=== PATIENT | female | born 1960 | race African-American/Black ===

== ENCOUNTER 2017-01-01 15:55 | Emergency (ER) | payer MEDICARE, MEDICAID ==
[~2017-01-01] VITALS: Ht 157.5 cm; Wt 97.0 kg
[~2017-01-01 15:55] MED LIST: CYCL5TAB PO; DIPH1TAB36 PO; ESCI10TA PO; GABA300C5 PO; HYDR50TA3 PO; METF500T PO; MOBI15TA PO; NIFE10CA PO; NORC5TAB PO; SIMV20TA PO; cpap
[2017-01-01 16:00] VITALS: BP 169/85; PULSE 91; RESP 18; TEMP 98.9; O2SAT 99
[2017-01-01 16:10] VITALS: RESP 18; O2SAT 99
[2017-01-01] MEDS ORDERED: SODIUM CHLORIDE 0.9% FLUSH 10 ML FLUSH IVF PRN (16:15)
--- NOTE | 2017-01-01 16:31 | PD ---
HPI . Somnolence Chief Complaint: General Weakness Time Seen by Provider: 16:02 Travel History International Travel<30 days: No Contact w/Intl Traveler<30days: No Traveled to known affect area: No History of Present Illness HPI This patient presents to us via EMS with chief complaint of hypersomnolence. The patient reports that she has sleep apnea. She has not had a CPAP machine for the last year. She reports continued and worsening somnolence for the last year. Her reports profound confusion associated with the somnolence. He became concerned today and called 911 and had her brought to the hospital. PFSH Past Medical History Asthma: No Blood Disorders: No Heart Rhythm Problems: Yes (HEART MURMUR) Cardiac Catheterization: No Cardiovascular Problems: No High Cholesterol: Yes (MEDICATION CONTROLLED) Chemotherapy: No Chest Pain: Yes (CHEST PAIN) Congestive Heart Failure: No COPD: No Coronary Artery Disease: Yes Diabetes: Yes (BORDERLINE DIET CONTROLLED) Patient Takes Glucophage: Yes Diminished Hearing: No Endocrine: No Genitourinary: No Hypertension: Yes Immune Disorder: No Musculoskeletal: Yes (CHRONIC L KNEE PAIN DUE TO ACCIDENT ON THE JOB IN 2007) Neurologic: No Psychiatric: No Reproductive: No Respiratory: Yes (HAD BRONCHITIS IN THE PAST) Migraines: Yes Myocardial Infarction: No Radiation Therapy: No Sleep Apnea: Yes (CPAP AT NIGHT) Thyroid Disease: No Tetanus Vaccination: > 5 Years Influenza Vaccination: Yes PNEUMOCCOCAL Vaccine (Year): 2 ?: Not Menopausal: Yes : 5 Para: 5 Tubal Ligation: Yes Past Surgical History Appendectomy: Yes Coronary Artery Bypass Graft: No Hysterectomy: Yes Pacemaker: No Other Surgery: No Social History Alcohol Use: No Tobacco Use: No Substance Use: No Allergies-Medications (Allergen,Severity, Reaction): Coded Allergies: tramadol (Unverified Adverse Reaction, Intermediate, vomiting, 01/01/17) N/V Reported Meds & Prescriptions Reported Meds & Active Scripts Active Gabapentin 300 Mg Cap 300 Mg PO TID Escitalopram (Escitalopram Oxalate) 10 Mg Tab 10 Mg PO HS Mobic (Meloxicam) 15 Mg Tab 15 Mg PO DAILY Flexeril (Cyclobenzaprine HCl) 5 Mg Tab 5 Mg PO TID Hydrochlorothiazide 50 Mg Tab 25 Mg PO DAILY Metformin (Metformin HCl) 500 Mg Tab 500 Mg PO BIDPC With meals Simvastatin 20 Mg Tab 20 Mg PO DAILY Reported [place]on (Hydrocodone-Acetaminophen) 5-325 mg Tab 1 Tab PO BID PRN Review of Systems Except as stated in HPI: all other systems reviewed are Neg General / Constitutional: Positive: Other (, somnolence) Psychiatric: Positive: Depression, Suicidal Ideations Physical Exam Narrative GENERAL: Awake and alert and in no acute distress. SKIN: Warm and dry. HEAD: Atraumatic. Normocephalic. EYES: Pupils equal and round. Extraocular movements are intact. NECK: Trachea midline. Neck is supple. CARDIOVASCULAR: Regular rate and rhythm. RESPIRATORY: No accessory muscle use. Lungs are clear with full air movement throughout. MUSCULOSKELETAL: No obvious deformities. No edema. NEUROLOGICAL: Awake and alert. No obvious cranial nerve deficits. Motor grossly within normal limits. Normal speech. PSYCHIATRIC: Patient appears very sad. She is tearful. She admits to suicidal ideation. She thinks that she is very depressed. Data Data Last Documented VS Vital Signs Date Time Temp Pulse Resp B/P (MAP) Pulse Ox O2 Delivery O2 Flow Rate FiO2 01/01/17 16:10 18 99 Room Air 01/01/17 16:06 96 01/01/17 16:00 98.9 169/85 (113) Orders Orders Complete Blood Count With Diff (01/01/17 16:04) Basic Metabolic Panel (Bmp) (01/01/17 16:04) Arterial Blood Gas (Abg) (01/01/17 16:04) Iv Access Insert/Monitor (01/01/17 16:04) Ecg Monitoring (01/01/17 16:04) Oximetry (01/01/17 16:04) Oxygen Administration (01/01/17 16:04) Chest, Single Ap (01/01/17 16:04) Sodium Chloride 0.9% Flush (Ns Flush) (01/01/17 16:15) Psych Screen (01/01/17 16:12) Drug Screen, Random Urine (01/01/17 16:12) Alcohol (Ethanol) (01/01/17 16:12) Labs Laboratory Tests Test 01/01/17 16:30 White Blood Count 6.3 TH/MM3 Red Blood Count 5.18 MIL/MM3 Hemoglobin 12.4 GM/DL Hematocrit 38.2 % Mean Corpuscular Volume 73.9 FL Mean Corpuscular Hemoglobin 23.9 PG Mean Corpuscular Hemoglobin Concent 32.3 % Red Cell Distribution Width 14.3 % Platelet Count 267 TH/MM3 Mean Platelet Volume 7.9 FL Neutrophils (%) (Auto) 47.6 % Lymphocytes (%) (Auto) 44.2 % Monocytes (%) (Auto) 5.8 % Eosinophils (%) (Auto) 1.4 % Basophils (%) (Auto) 1.0 % Neutrophils # (Auto) 3.0 TH/MM3 Lymphocytes # (Auto) 2.8 TH/MM3 Monocytes # (Auto) 0.4 TH/MM3 Eosinophils # (Auto) 0.1 TH/MM3 Basophils # (Auto) 0.1 TH/MM3 CBC Comment DIFF FINAL Differential Comment Blood Urea Nitrogen 11 MG/DL Creatinine 1.04 MG/DL Random Glucose 159 MG/DL Calcium Level 9.4 MG/DL Sodium Level 138 MEQ/L Potassium Level 3.0 MEQ/L Chloride Level 99 MEQ/L Carbon Dioxide Level 27.7 MEQ/L Anion Gap 11 MEQ/L Estimat Glomerular Filtration Rate 67 ML/MIN MDM Medical Decision Making Medical Screen Exam Complete: Yes Emergency Medical Condition: Yes Differential Diagnosis Differential diagnosis of altered mental status includes but is not limited to infection, electrolyte abnormality, neurological event, intoxication Narrative Course This patient presents with a one-year history of increasing somnolence associated with lack of CPAP machine. She reports that she feels depressed and suicidal. She will be medically cleared. She will then be evaluated by psychiatry. Chest x-ray was negative. The chest x-ray was independently viewed by me. CBC & BMP Diagram 01/01/17 16:30 Calcium Level 9.4 I will replace her potassium orally. This patient is medically clear for psychiatric evaluation. Diagnosis Primary Impression: Uncontrolled daytime somnolence Additional Impressions: Obstructive sleep apnea Depression Qualified Codes: F32.9 - Major depressive disorder, single episode, unspecified Suicidal ideation Hypokalemia Condition: Stable Felicia Díaz MD Jan 01, 2017 16:31
[2017-01-01 16:44] LABS: BASOPHIL # 0.1 TH/MM3 (0-0.2); EOSINOPHIL # 0.1 TH/MM3 (0-0.4); EOSINOPHIL % 1.4 % (0.0-4.0); HEMATOCRIT 38.2 % (35.0-46.0); HEMO FLAGS DIFF FINAL; LYMPH % 44.2 % (9.0-44.0); LYMPHOCYTE # 2.8 TH/MM3 (1.0-4.8); MEAN CELL VOLUME 73.9 FL (80.0-100.0); MEAN CORPUSCULAR HEMOGLOBIN 23.9 PG (27.0-34.0); MEAN CORPUSCULAR HGB CONC 32.3 % (32.0-36.0); MONO % 5.8 % (0.0-8.0); NEUT % 47.6 % (16.0-70.0); PLATELET COUNT 267 TH/MM3 (150-450); RED BLOOD COUNT 5.18 MIL/MM3 (4.00-5.30); RED CELL DISTRIBUTION WIDTH 14.3 % (11.6-17.2); WHITE BLOOD COUNT 6.3 TH/MM3 (4.0-11.0)
--- NOTE | 2017-01-01 16:46 | RADRPT ---
EXAM DATE/TIME: 01/01/2017 16:28 [facility] COMPARISON: No previous studies available for comparison. INDICATIONS : Short of breath. MEDICAL HISTORY : Hypertension. SURGICAL HISTORY : None. ENCOUNTER: Initial ACUITY: 2 days PAIN SCORE: 4/10 LOCATION: Bilateral upper chest FINDINGS: A single view of the chest demonstrates the lungs to be symmetrically aerated without evidence of mas s, infiltrate or effusion. The cardiomediastinal contours are unremarkable. Osseous structures are intact. CONCLUSION: No acute disease. Chani Pollard MD on January 01, 2017 at 16:44 Board Certified Radiologist. This report was verified electronically.
[2017-01-01 16:58] LABS: BICARBONATE 27.7 MEQ/L (21.0-32.0)
[2017-01-01 18:13] VITALS: BP 131/81; PULSE 89; RESP 18; O2SAT 99
[2017-01-01] MEDS: POTASSIUM CHLORIDE 20 MEQ CONTROLLED RELEASE TAB PO SCH ×2 (18:14→21:27)
--- NOTE | 2017-01-01 23:25 | PD ---
Physical Exam Narrative Patient was medically clear by ED physician. Patient was seen by psychiatric screener. Data Data Last Documented VS Vital Signs Date Time Temp Pulse Resp B/P (MAP) Pulse Ox O2 Delivery O2 Flow Rate FiO2 01/01/17 18:13 89 18 131/81 (98) 99 Room Air 01/01/17 16:00 98.9 Orders Orders Complete Blood Count With Diff (01/01/17 16:04) Basic Metabolic Panel (Bmp) (01/01/17 16:04) Iv Access Insert/Monitor (01/01/17 16:04) Ecg Monitoring (01/01/17 16:04) Oximetry (01/01/17 16:04) Oxygen Administration (01/01/17 16:04) Chest, Single Ap (01/01/17 16:04) Sodium Chloride 0.9% Flush (Ns Flush) (01/01/17 16:15) Psych Screen (01/01/17 16:12) Drug Screen, Random Urine (01/01/17 16:12) Alcohol (Ethanol) (01/01/17 16:12) Potassium Chloride (Kcl) (01/01/17 18:00) Labs Laboratory Tests Test 01/01/17 16:30 White Blood Count 6.3 TH/MM3 Red Blood Count 5.18 MIL/MM3 Hemoglobin 12.4 GM/DL Hematocrit 38.2 % Mean Corpuscular Volume 73.9 FL Mean Corpuscular Hemoglobin 23.9 PG Mean Corpuscular Hemoglobin Concent 32.3 % Red Cell Distribution Width 14.3 % Platelet Count 267 TH/MM3 Mean Platelet Volume 7.9 FL Neutrophils (%) (Auto) 47.6 % Lymphocytes (%) (Auto) 44.2 % Monocytes (%) (Auto) 5.8 % Eosinophils (%) (Auto) 1.4 % Basophils (%) (Auto) 1.0 % Neutrophils # (Auto) 3.0 TH/MM3 Lymphocytes # (Auto) 2.8 TH/MM3 Monocytes # (Auto) 0.4 TH/MM3 Eosinophils # (Auto) 0.1 TH/MM3 Basophils # (Auto) 0.1 TH/MM3 CBC Comment DIFF FINAL Differential Comment Blood Urea Nitrogen 11 MG/DL Creatinine 1.04 MG/DL Random Glucose 159 MG/DL Calcium Level 9.4 MG/DL Sodium Level 138 MEQ/L Potassium Level 3.0 MEQ/L Chloride Level 99 MEQ/L Carbon Dioxide Level 27.7 MEQ/L Anion Gap 11 MEQ/L Estimat Glomerular Filtration Rate 67 ML/MIN Ethyl Alcohol Level LESS THAN 3 MG/DL MDM Supervised Visit with SAHIL: No Narrative Course Patient was medically cleared by ED physician. Patient was psychiatrically cleared by psychiatric screener after speaking to psychiatrist. Patient will be discharged home. Patient will be follow-up with psychiatry as outpatient. Diagnosis Primary Impression: Uncontrolled daytime somnolence Additional Impressions: Suicidal ideation Obstructive sleep apnea Depression Qualified Codes: F32.9 - Major depressive disorder, single episode, unspecified Hypokalemia Patient Instructions: General Instructions Additional Instruction: Follow-up with psychiatrist as outpatient. Return as needed. Med/Other Pt SpecificInfo: No Change to Meds Disposition: 01 DISCHARGE HOME Condition: Stable Lane Zavaleta MD Jan 01, 2017 23:25
[2017-01-01] MEDS ORDERED: hydrOXYzine PAMOATE 25 MG CAP PO ONE (23:45)
[2017-01-02] MEDS ORDERED: HYDR-3580 PO (15:55)
[2017-01-02] MEDS ORDERED: NIFE10CA PO (15:55)
[2017-01-12] MEDS ORDERED: HYDR50TA3 PO (16:06)
[2017-01-12] MEDS ORDERED: ESCI20TA PO (16:06)
[2017-01-12] MEDS ORDERED: METF500T PO (16:06)
[2017-01-12] MEDS ORDERED: SIMV20TA PO (16:06)
== END 2017-01-02 00:07 | disposition home or self-care (01) ==
LOC: NEPE 15:55
DX: G47.19 Other hypersomnia (principal); G47.33 Obstructive sleep apnea (adult) (pediatric); F32.9 Major depressive disorder, single episode, unspecified; E87.6 Hypokalemia; Z79.899 Other long term (current) drug therapy
CPT/HCPCS: 71010; 80048; 80307; 85025; 99284; Q0177

== ENCOUNTER 2017-01-02 15:09 | Inpatient (IN) | payer MEDICARE, MEDICAID ==
[~2017-01-02] VITALS: Ht 160 cm; Wt 95.9 kg
[~2017-01-02 15:09] MED LIST changes: -DIPH1TAB36 PO; -NIFE10CA PO; -cpap
[2017-01-02 15:39] VITALS: BP 124/81; PULSE 94; RESP 14; TEMP 97.2; O2SAT 100
[2017-01-02] MEDS ORDERED: NIFE10CA PO (15:55)
[2017-01-02] MEDS ORDERED: HYDR-3580 PO (15:55)
--- NOTE | 2017-01-02 16:09 | PD ---
HPI Chief Complaint: Medical Clearance Time Seen by Provider: 15:58 Travel History International Travel<30 days: No Contact w/Intl Traveler<30days: No Traveled to known affect area: No History of Present Illness HPI 56-year-old female presents back to the emergency department for evaluation. She was seen here last night and had a faint screen completed. She was told that Dr. Mario would be able to make medication adjustments that she return today between 3 and 4 PM. Patient states that she has been sad and depressed. She is tearful on my exam. She reports issues with her watching her attention and her want to spend time with her grandchildren. 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 She states she has thought about suicide the past, has no plan but states she would ever act on it. The patient denies alcohol, tobacco, drug use. She has no medical complaints at this time. PFSH Past Medical History Asthma: No Blood Disorders: No Heart Rhythm Problems: Yes (HEART MURMUR) Cardiac Catheterization: No Cardiovascular Problems: Yes High Cholesterol: Yes (MEDICATION CONTROLLED) Chemotherapy: No Chest Pain: Yes (CHEST PAIN) Congestive Heart Failure: No COPD: No Coronary Artery Disease: Yes Diabetes: Yes Patient Takes Glucophage: Yes Diminished Hearing: No Endocrine: No Genitourinary: No Hypertension: Yes Immune Disorder: No Musculoskeletal: Yes (CHRONIC L KNEE PAIN DUE TO ACCIDENT ON THE JOB IN 2007) Neurologic: No Psychiatric: No Reproductive: No Respiratory: Yes (HAD BRONCHITIS IN THE PAST) Migraines: Yes Myocardial Infarction: No Radiation Therapy: No Sleep Apnea: Yes (CPAP AT NIGHT) Thyroid Disease: No PNEUMOCCOCAL Vaccine (Year): 2 ?: Not Menopausal: Yes : 5 Para: 5 Tubal Ligation: Yes Past Surgical History Appendectomy: Yes Coronary Artery Bypass Graft: No Hysterectomy: Yes Pacemaker: No Other Surgery: No Social History Alcohol Use: No Tobacco Use: No Substance Use: No Allergies-Medications (Allergen,Severity, Reaction): Coded Allergies: tramadol (Verified Adverse Reaction, Intermediate, vomiting, 01/02/17) N/V Reported Meds & Prescriptions Reported Meds & Active Scripts Active Gabapentin 300 Mg Cap 300 Mg PO TID Escitalopram (Escitalopram Oxalate) 10 Mg Tab 10 Mg PO HS Mobic (Meloxicam) 15 Mg Tab 15 Mg PO DAILY Flexeril (Cyclobenzaprine HCl) 5 Mg Tab 5 Mg PO TID Hydrochlorothiazide 50 Mg Tab 25 Mg PO DAILY Metformin (Metformin HCl) 500 Mg Tab 500 Mg PO BIDPC With meals Simvastatin 20 Mg Tab 20 Mg PO DAILY Reported Hydrocodone-Acetaminophen 7.5-325 mg Tab 1 Tab PO BID PRN Nifedipine 10 Mg Cap 10 Mg PO DAILY Review of Systems Except as stated in HPI: all other systems reviewed are Neg Physical Exam Narrative GENERAL: Well-nourished, well-developed female patient, afebrile. SKIN: Focused skin assessment warm/dry. HEAD: Normocephalic. Atraumatic. EYES: No scleral icterus. No injection or drainage. NECK: Supple, trachea midline. No JVD or lymphadenopathy. CARDIOVASCULAR: Regular rate and rhythm without murmurs, gallops, or rubs. RESPIRATORY: Breath sounds equal bilaterally. No accessory muscle use. Lungs sounds are clear to auscultation. GASTROINTESTINAL: Abdomen soft, non-tender, nondistended. MUSCULOSKELETAL: No cyanosis, or edema. PSYCHIATRIC: No delusional thought processes. No hallucinations. Patient is tearful. Data Data Last Documented VS Vital Signs Date Time Temp Pulse Resp B/P (MAP) Pulse Ox O2 Delivery O2 Flow Rate FiO2 01/02/17 15:39 97.2 94 14 124/81 (95) 100 Orders Orders Admit Order (Ed Use Only) (01/02/17 17:01) Admit To Inpatient Psych (01/02/17 ) Vital Signs (Adult) PHU.Q12H.E (01/02/17 17:02) Activity Oob Ad Karishma (01/02/17 17:02) Level Of Observation (Psych) (01/02/17 17:02) Lorazepam (Ativan) (01/02/17 17:15) Lorazepam Inj (Ativan Inj) (01/02/17 17:15) Lorazepam (Ativan) (01/02/17 17:15) Lorazepam Inj (Ativan Inj) (01/02/17 17:15) Acetaminophen (Tylenol) (01/02/17 17:15) Magnesium Hydroxide Liq (Milk Of Magnesi (01/02/17 17:15) Al-Mag Hy-Si 40-40-4 Mg/Ml Liq (Mag-Al P (01/02/17 17:15) Basic Metabolic Panel (Bmp) (01/03/17 06:00) Lipid Profile (01/03/17 06:00) Hemoglobin (Hgb) A1c (01/03/17 06:00) MDM Medical Decision Making Medical Screen Exam Complete: Yes Emergency Medical Condition: Yes Medical Record Reviewed: Yes Differential Diagnosis Depression versus anxiety versus medical clearance Narrative Course 56-year-old female presents to the emergency department for medication adjustment. She was told if she came back today between 3 and 4 PM, Dr. Mario would be able to make some medication changes. I spoke to Irasema Borja with the psych department. She will call Dr. Mario. Dr. Mario saw patient and wrote at admit. Diagnosis Primary Impression: Depression, major, single episode, severe Admitting Information Admitting Physician Requests: Alesha Hannon Jan 02, 2017 16:09
--- NOTE | 2017-01-02 17:07 | PD ---
History of Present Illness Chief Complaint: Medical Clearance Time Seen by Provider: 17:00 Travel History International Travel<30 Days: No Contact w/Intl Traveler<30days: No Known affected area: No Legal Status Legal Status: Voluntary History of Present Illness: 56-year-old female came in yesterday with complaints of depression and suicidal thinking. Has to come back today to have this physician changed her antidepressant therapy. Patient unable to contract for safety. She describes multiple symptoms of depression for months. These include depressed mood, anhedonia, hypersomnia, suicidal ideation, hopelessness and helplessness, decreased energy, decreased self-esteem, social withdrawal, etc. Patient's , although supportive, does not feel he can watch her or take care of her. Multiple family stressors. Patient denies history of alcoholism or drug abuse. 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 PFSH Past Medical History Asthma: No Blood Disorders: No Heart Rhythm Problems: Yes (HEART MURMUR) Cardiac Catheterization: No Cardiovascular Problems: Yes High Cholesterol: Yes (MEDICATION CONTROLLED) Chemotherapy: No Chest Pain: Yes (CHEST PAIN) Congestive Heart Failure: No COPD: No Coronary Artery Disease: Yes Diabetes: Yes Patient Takes Glucophage: Yes Diminished Hearing: No Endocrine: No Genitourinary: No Hypertension: Yes Immune Disorder: No Musculoskeletal: Yes (CHRONIC L KNEE PAIN DUE TO ACCIDENT ON THE JOB IN 2007) Neurologic: No Psychiatric: No Reproductive: No Respiratory: Yes (HAD BRONCHITIS IN THE PAST) Migraines: Yes Myocardial Infarction: No Radiation Therapy: No Sleep Apnea: Yes (CPAP AT NIGHT) Thyroid Disease: No PNEUMOCCOCAL Vaccine (Year): 2 ?: Not Menopausal: Yes : 5 Para: 5 Tubal Ligation: Yes Past Surgical History Appendectomy: Yes Coronary Artery Bypass Graft: No Hysterectomy: Yes Pacemaker: No Other Surgery: No Psychiatric History Psychiatric History Hx Psychiatric Treatment: PATIENT REPORTS ACT PROGRAM IN THE 'S. 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 PATIENT ALSO REPORTS ATTENDING COUNSELING DUE TO HER OLDEST SON MOLESTING HER YOUNGEST DAUGHTER. History of Inpatient Treatment: Yes Social History Hx Alcohol Use: No Hx Tobacco Use: No Hx Substance Use: No Hx of Substance Use Treatment: No Allergies-Medications (Allergen,Severity, Reaction): Coded Allergies: tramadol (Verified Adverse Reaction, Intermediate, vomiting, 01/02/17) N/V Reported Meds & Prescriptions Reported Meds & Active Scripts Active Gabapentin 300 Mg Cap 300 Mg PO TID Escitalopram (Escitalopram Oxalate) 10 Mg Tab 10 Mg PO HS Mobic (Meloxicam) 15 Mg Tab 15 Mg PO DAILY Flexeril (Cyclobenzaprine HCl) 5 Mg Tab 5 Mg PO TID Hydrochlorothiazide 50 Mg Tab 25 Mg PO DAILY Metformin (Metformin HCl) 500 Mg Tab 500 Mg PO BIDPC With meals Simvastatin 20 Mg Tab 20 Mg PO DAILY Reported Hydrocodone-Acetaminophen 7.5-325 mg Tab 1 Tab PO BID PRN Nifedipine 10 Mg Cap 10 Mg PO DAILY Review of Systems Except as stated in HPI: all other systems reviewed are Neg Exam Alert: Yes [place]: Person, Place, Date, Situation Mood: Depressed Affect: Blunted Speech: Clear Eye Contact: Indirect Memory Intact: Immediate, Recent, Remote Suicidal: Ideation Insight/Judgement Impaired MDM Medical Decision Making Medical Record Reviewed: Yes Assessment/Plan Medical record review by this physician. Case discussed with nurse. This physician interviewed the patient and her at bedside. Patient remains quite depressed and is unable to contract for safety. She would like to be admitted. She does not wish to try changing her medicines on an outpatient basis. Orders Orders Admit Order (Ed Use Only) (01/02/17 17:01) Admit To Inpatient Psych (01/02/17 ) Vital Signs (Adult) PHU.Q12H.E (01/02/17 17:02) Activity Oob Ad Karishma (01/02/17 17:02) Level Of Observation (Psych) (01/02/17 17:02) Lorazepam (Ativan) (01/02/17 17:15) Lorazepam Inj (Ativan Inj) (01/02/17 17:15) Lorazepam (Ativan) (01/02/17 17:15) Lorazepam Inj (Ativan Inj) (01/02/17 17:15) Acetaminophen (Tylenol) (01/02/17 17:15) Magnesium Hydroxide Liq (Milk Of Magnesi (01/02/17 17:15) Al-Mag Hy-Si 40-40-4 Mg/Ml Liq (Mag-Al P (01/02/17 17:15) Basic Metabolic Panel (Bmp) (01/03/17 06:00) Lipid Profile (01/03/17 06:00) Hemoglobin (Hgb) A1c (01/03/17 06:00) Results Vital Signs Date Time Temp Pulse Resp B/P (MAP) Pulse Ox O2 Delivery O2 Flow Rate FiO2 01/02/17 15:39 97.2 94 14 124/81 (95) 100 Diagnosis Primary Impression: Depression, major, single episode, severe Tom Mario MD Jan 02, 2017 17:07
[2017-01-02] MEDS ORDERED: ALUMINUM/MAGNESIUM/SIMETH 30 ML CUP PO PRN (17:15)
[2017-01-02] MEDS ORDERED: MAGNESIUM HYDROXIDE SUSP 30 ML CUP PO PRN (17:15)
[2017-01-02] MEDS ORDERED: LORazepam 2 MG/ML VIAL IM PRN ×2 (17:15)
[2017-01-02] MEDS ORDERED: LORazepam 0.5 MG TAB PO PRN (17:15)
[2017-01-02] MEDS ORDERED: ACETAMINOPHEN 325 MG TAB PO PRN (17:15)
[2017-01-02 19:25] LABS: AUTOMATED NEUTROPHIL # 2.9 TH/MM3 (1.8-7.7); BASOPHIL % 0.4 % (0.0-2.0); EOSINOPHIL # 0.1 TH/MM3 (0-0.4); EOSINOPHIL % 1.7 % (0.0-4.0); HEMATOCRIT 36.8 % (35.0-46.0); HEMO FLAGS DIFF FINAL; LYMPH % 43.6 % (9.0-44.0); LYMPHOCYTE # 2.6 TH/MM3 (1.0-4.8); MEAN CORPUSCULAR HEMOGLOBIN 23.6 PG (27.0-34.0); MEAN CORPUSCULAR HGB CONC 31.8 % (32.0-36.0); MONO % 6.9 % (0.0-8.0); NEUT % 47.4 % (16.0-70.0); PLATELET COUNT 260 TH/MM3 (150-450); RED BLOOD COUNT 4.97 MIL/MM3 (4.00-5.30); RED CELL DISTRIBUTION WIDTH 14.3 % (11.6-17.2)
[2017-01-02 19:39] VITALS: BP 134/91; PULSE 90; RESP 17; TEMP 98.2; O2SAT 99
[2017-01-02 19:48] LABS: ALT (GPT) 29 U/L (10-53); ANION GAP 9 MEQ/L (5-15); AST (GOT) 15 U/L (15-37); BICARBONATE 28.3 MEQ/L (21.0-32.0); BLOOD UREA NITROGEN 14 MG/DL (7-18); CHLORIDE 103 MEQ/L (98-107); GLOMERULAR FILTRATION RATE 77 ML/MIN (>89); POTASSIUM 3.4 MEQ/L (3.5-5.1); SODIUM (NA) 140 MEQ/L (136-145)
[2017-01-02 19:50] LABS: ALKALINE PHOSPHATASE 69 U/L (45-117); TOTAL BILIRUBIN ADULT 0.4 MG/DL (0.2-1.0)
[2017-01-02] MEDS: LORazepam 1 MG TAB PO PRN (23:14)
[2017-01-03 06:03] VITALS: BP 132/76; PULSE 83; RESP 18; TEMP 98; O2SAT 99
[2017-01-03 08:42] LABS: ANION GAP 6 MEQ/L (5-15); BICARBONATE 30.9 MEQ/L (21.0-32.0); BLOOD UREA NITROGEN 12 MG/DL (7-18); CHLORIDE 100 MEQ/L (98-107); GLOMERULAR FILTRATION RATE 80 ML/MIN (>89); POTASSIUM 3.8 MEQ/L (3.5-5.1); SODIUM (NA) 137 MEQ/L (136-145)
[2017-01-03 08:46] LABS: LDL CHOLESTEROL 80 MG/DL (0-99)
[2017-01-03] MEDS: LORazepam 1 MG TAB PO PRN (09:46)
--- NOTE | 2017-01-03 11:28 | HHI.FPPN ---
Subjective Remarks Mrs. Mccabe is a pleasant 56 y/o black female with a PMHx of hypertension, T2DM , depression, chronic lower back pain, and hypercholesterolemia presenting after suicidal ideations. She reports that she just needed to escape, and that there has been a lot of stress recently. He denies any previous attempts of suicide. She denies any current thoughts of suicide with plans. She has had depression, all of her life. Denies any substance or alcohol abuse. She reports that her back pain is at its baseline, and is requesting her pain medications. She was recently started on [place] 7.5 mg twice a day for back pain by Dr. Grubbs, her pain specialist. She also takes gabapentin 3 times a day and this also helps with her pain. She is asking when she can go home. (Gonzalez Marrero MD, R3) Objective Vitals Vital Signs Date Time Temp Pulse Resp B/P (MAP) Pulse Ox O2 Delivery O2 Flow Rate FiO2 01/03/17 06:03 98.0 83 18 132/76 (94) 99 01/02/17 19:39 98.2 90 17 134/91 (105) 99 01/02/17 15:39 97.2 94 14 124/81 (95) 100 (Gonzalez Marrero MD, R3) Result Diagram: 01/02/17 1832 01/03/17 0713 Objective Remarks GENERAL: Obese, female, in no acute distress. Affect is blunted. SKIN: Warm and dry. No rash. EYES: No scleral icterus. No injection or drainage. PERRLA. EOMI. HENT: Normocephalic. Atraumatic. MMM. NECK: No visible JVD or lymphadenopathy. CARDIOVASCULAR: Warm and well perfused. RESPIRATORY: Normal respiratory effort. GASTROINTESTINAL: Abdomen nondistended. MUSCULOSKELETAL: Strength grossly WNL. BACK: Without obvious deformity. NEURO/PSYCH: Afocal. Awake, alert, and oriented x3. (Gonzalez Marrero MD, R3) A/P Assessment and Plan 56-year-old very pleasant female, with a past medical history significant for high blood pressure, her 2 diabetes, hyperlipidemia, major depressive disorder, and lower back pain, admitted for suicidal ideation. The family medicine team was consulted for management of chronic medical problems. (Gonzalez Marrero MD, R3) Attending Attestation Patient seen and examined with Dr Ruthann Marrero. Case reviewed and discussed with the resident. Agree with plan of care as discussed with me and documented in the resident note. (Rian Ribeiro MD) Problem List: (1) Obstructive sleep apnea ICD Codes: G47.33 - Obstructive sleep apnea (adult) (pediatric) Status: Acute Plan: Currently being worked up as an outpatient. May be contributing to hypertension, as well as fatigue. (2) Osteoarthritis ICD Codes: M19.90 - Unspecified osteoarthritis, unspecified site Status: Acute Plan: Osteoarthritis of back, currently taking 7.5 mg [place] twice a day. Will continue. Straight leg raise positive bilaterally. Point tenderness over lumbar spine. (3) Hypertension ICD Codes: I10 - Essential (primary) hypertension Status: Acute Plan: Well-controlled on home medications. We'll continue hydrochlorothiazide as well as nifedipine. (4) Diabetes type 2, uncontrolled ICD Codes: E11.65 - Type 2 diabetes mellitus with hyperglycemia Status: Acute Plan: Random glucose on 01/03 was 97. Continue with metformin twice a day. (5) Depression, major, single episode, severe ICD Codes: F32.2 - Major depressive disorder, single episode, severe without psychotic features Status: Acute Plan: Positive factors include her grandchildren, lack of previous attempts, lack of substance abuse. We greatly appreciate psychiatry's recommendations on current antidepressants. Patient was previously on Celexa 10 mg daily. (6) Nutrition, metabolism, and development symptoms ICD Codes: R63.8 - Other symptoms and signs concerning food and fluid intake Plan: Attrition: Regular diet GI prophylaxis: None indicated DVT prophylaxis: Ambulating without difficulty. Fluids: By mouth We'll continue to follow along during her hospitalization. We appreciate the opportunity to participate in the care of Mrs. Mccabe. sdw Dr. Ribeiro (Gonzalez Marrero MD, R3) Gonzalez Marrero MD, R3 Jan 03, 2017 11:28 Rian Ribeiro MD Jan 03, 2017 17:56
[2017-01-03] MEDS: PRAVASTATIN SOD 40 MG TAB PO SCH (12:30)
[2017-01-03] MEDS: GABAPENTIN 300 MG CAP PO SCH ×2 (13:00→17:57)
[2017-01-03] MEDS: HYDROCHLOROTHIAZIDE 25 MG TAB PO SCH (13:00)
--- NOTE | 2017-01-03 13:43 | HHI.DCPOC ---
Discharge Care Plan Diagnosis: (1) Suicidal ideation (2) Diabetes type 2, uncontrolled (3) Obstructive sleep apnea (4) Hypertension (5) Uncontrolled hypertension Goals to Promote Your Health * To prevent worsening of your condition and complications * To maintain your health at the optimal level Directions to Meet Your Goals Take your medications as prescribed Follow your dietary instruction Follow activity as directed Keep your appointments as scheduled Take your immunizations and boosters as scheduled If your symptoms worsen call your PCP, if no PCP go to Urgent Care Center or Emergency Room Smoking is Dangerous to Your Health. Avoid second hand smoke Call the 24-hour hour crisis hotline for domestic abuse at Gonzalez Marrero MD, R3 Jan 03, 2017 13:43
[2017-01-03] MEDS: ACETAMINOPHEN/HYDROcodone 325 MG/7.5 MG TAB PO PRN (13:58)
[2017-01-03] MEDS ORDERED: diphenhydrAMINE HCL 50 MG CAP PO PRN (14:30)
[2017-01-03] MEDS ORDERED: ACETAMINOPHEN 325 MG TAB PO PRN (14:30)
[2017-01-03] MEDS ORDERED: hydrOXYzine HCL 50 MG TAB PO PRN (14:30)
[2017-01-03] MEDS ORDERED: ALUMINUM/MAGNESIUM/SIMETH 30 ML CUP PO PRN (14:30)
[2017-01-03] MEDS: ESCITALOPRAM OXALATE 20 MG TAB PO SCH (14:30)
[2017-01-03] MEDS ORDERED: MAGNESIUM HYDROXIDE SUSP 30 ML CUP PO PRN (14:30)
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
[2017-01-03 15:50] LABS: HEMOGLOBIN A1a 0.8 %; HEMOGLOBIN A1b 2.1 %; HEMOGLOBIN Ao 84.2 %; HEMOGLOBIN LA1C 1.7 %; HEMOGLOBIN P3 3.6 %
[2017-01-03 17:05] VITALS: BP 150/65; PULSE 80; RESP 18; TEMP 98.1; O2SAT 98
[2017-01-03] MEDS: metFORMIN HCL 500 MG TAB PO SCH (17:57)
[2017-01-04] MEDS: ACETAMINOPHEN/HYDROcodone 325 MG/7.5 MG TAB PO PRN (01:34)
[2017-01-04 06:22] VITALS: BP 119/70; PULSE 76; RESP 17; TEMP 97.9; O2SAT 98
[2017-01-04] MEDS ORDERED: GLUCAGON 1 MG/ML VIAL OTHER PRN (08:15)
[2017-01-04] MEDS ORDERED: DEXTROSE 50% IN WATER 50 ML VIAL(D50) IV PRN (08:15)
[2017-01-04] MEDS: ESCITALOPRAM OXALATE 20 MG TAB PO SCH (08:52)
[2017-01-04] MEDS: GABAPENTIN 300 MG CAP PO SCH ×2 (08:52→12:36)
[2017-01-04] MEDS: metFORMIN HCL 500 MG TAB PO SCH (08:52)
[2017-01-04] MEDS: PRAVASTATIN SOD 40 MG TAB PO SCH (08:52)
[2017-01-04] MEDS: HYDROCHLOROTHIAZIDE 25 MG TAB PO SCH (08:53)
[2017-01-04] MEDS ORDERED: MELOXICAM 15 MG TAB PO SCH (09:00)
[2017-01-04] MEDS ORDERED: NIFEdipine 10 MG CAP PO SCH (09:00)
--- NOTE | 2017-01-04 10:46 | HHI.FPPN ---
Subjective Remarks No complaints or concerns today. Feeling well. VSS and at goal for age. BG controlled with metformin - talked about diet and exercise. Looking forward to joining [facility]. (Gonzalez Marrero MD, R3) Objective Vitals Vital Signs Date Time Temp Pulse Resp B/P (MAP) Pulse Ox O2 Delivery O2 Flow Rate FiO2 01/04/17 06:22 97.9 76 17 119/70 (86) 98 01/03/17 17:05 98.1 80 18 150/65 (93) 98 (Gonzalez Marrero MD, R3) Result Diagram: 01/02/17 1832 01/03/17 0713 Objective Remarks GENERAL: Obese, female, in no acute distress. Affect is blunted. SKIN: Warm and dry. No rash. EYES: No scleral icterus. No injection or drainage. PERRLA. EOMI. HENT: Normocephalic. Atraumatic. MMM. NECK: No visible JVD or lymphadenopathy. CARDIOVASCULAR: Warm and well perfused. RESPIRATORY: Normal respiratory effort. GASTROINTESTINAL: Abdomen nondistended. MUSCULOSKELETAL: Strength grossly WNL. BACK: Without obvious deformity. NEURO/PSYCH: Afocal. Awake, alert, and oriented x3. (Gonzalez Marrero MD, R3) A/P Assessment and Plan 56-year-old very pleasant female, with a past medical history significant for high blood pressure, her 2 diabetes, hyperlipidemia, major depressive disorder, and lower back pain, admitted for suicidal ideation. The family medicine team was consulted for management of chronic medical problems. (Gonzalez Marrero MD, R3) Attending Attestation Patient interviewed and examined with Dr Ruthann Marrero. Case reviewed and discussed with the resident . Agree with plan of care as discussed with me and documented in the resident note. (Rian Ribeiro MD) Problem List: (1) Obstructive sleep apnea ICD Codes: G47.33 - Obstructive sleep apnea (adult) (pediatric) Status: Acute Plan: Currently being worked up as an outpatient. May be contributing to hypertension, as well as fatigue. (2) Osteoarthritis ICD Codes: M19.90 - Unspecified osteoarthritis, unspecified site Status: Acute Plan: Osteoarthritis of back, currently taking 7.5 mg [place] twice a day. Will continue. Straight leg raise positive bilaterally. Point tenderness over lumbar spine. (3) Hypertension ICD Codes: I10 - Essential (primary) hypertension Status: Acute Plan: Well-controlled on home medications. We'll continue hydrochlorothiazide as well as nifedipine. (4) Diabetes type 2, uncontrolled ICD Codes: E11.65 - Type 2 diabetes mellitus with hyperglycemia Status: Acute Plan: Random glucose on 01/03 was 97. Continue with metformin twice a day. (5) Depression, major, single episode, severe ICD Codes: F32.2 - Major depressive disorder, single episode, severe without psychotic features Status: Acute Plan: Positive factors include her grandchildren, lack of previous attempts, lack of substance abuse. We greatly appreciate psychiatry's recommendations on current antidepressants. Patient was previously on Celexa 10 mg daily. Being increased by Psychiatry - appreciate recs. (6) Nutrition, metabolism, and development symptoms ICD Codes: R63.8 - Other symptoms and signs concerning food and fluid intake Plan: Attrition: Regular diet GI prophylaxis: None indicated DVT prophylaxis: Ambulating without difficulty. Fluids: By mouth We'll continue to follow along during her hospitalization. We appreciate the opportunity to participate in the care of Mrs. Mccabe. sdw Dr. Ribeiro (Gonzalez Marrero MD, R3) Gonzalez Marrero MD, R3 Jan 04, 2017 10:46 Rian Ribeiro MD Jan 04, 2017 19:44
[2017-01-04] MEDS ORDERED: INSULIN ASPART SUPPLEMENTAL SCALE SQ SCH (11:00)
[2017-01-04] MEDS ORDERED: ESCI20TA PO (14:03)
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
[2017-01-12] MEDS ORDERED: HYDR50TA3 PO (16:06)
[2017-01-12] MEDS ORDERED: ESCI20TA PO (16:06)
[2017-01-12] MEDS ORDERED: SIMV20TA PO (16:06)
[2017-01-12] MEDS ORDERED: METF500T PO (16:06)
== END 2017-01-04 15:19 | disposition home or self-care (01) | DRG 885 ==
LOC: NEPD 15:09 → NEDA 17:03 → H260 19:20
PROVIDERS: ADMIT Psychiatry & Neurology Psychiatry; ATTEND Psychiatry & Neurology Psychiatry
DX: F33.2 Major depressive disorder, recurrent severe without psychotic features (principal); E11.65 Type 2 diabetes mellitus with hyperglycemia; R45.851 Suicidal ideations; I10 Essential (primary) hypertension; E78.5 Hyperlipidemia, unspecified; G47.33 Obstructive sleep apnea (adult) (pediatric); I25.10 Atherosclerotic heart disease of native coronary artery without angina pectoris; M19.90 Unspecified osteoarthritis, unspecified site; G47.19 Other hypersomnia; E87.6 Hypokalemia; Z79.899 Other long term (current) drug therapy
CPT/HCPCS: 71010; 80048; 80053; 80061; 80307; 82948; 83036; 85025; 99284

== ENCOUNTER 2017-09-04 17:11 | Emergency (ER) | payer MEDICAID, MEDICARE ==
[~2017-09-04] VITALS: Ht 160 cm; Wt 93.0 kg
[~2017-09-04 17:11] MED LIST changes: +AMLO5TAB2 PO; +ASPI-516 CHEW; -CYCL5TAB PO; -ESCI10TA PO; +ESCI20TA PO; +HYDR-3580 PO; -NORC5TAB PO
[2017-09-04 17:19] VITALS: BP 145/89; PULSE 89; RESP 20; TEMP 99.2; O2SAT 100
[2017-09-04] MEDS ORDERED: SODIUM CHLOR 0.9% 1000 ML INJ 1,000 ML IV SCH (19:25)
[2017-09-04] MEDS ORDERED: CYCL5TAB PO (19:28)
[2017-09-04] MEDS ORDERED: LYRI75CA PO (19:28)
[2017-09-04] MEDS ORDERED: DULO1CAP2 PO (19:28)
[2017-09-04] MEDS ORDERED: SODIUM CHLORIDE 0.9% FLUSH 10 ML FLUSH IVF PRN (19:30)
[2017-09-04 19:31] VITALS: RESP 20
--- NOTE | 2017-09-04 19:32 | PD ---
HPI Chief Complaint: Cold / Flu Symptoms Time Seen by Provider: 19:15 Travel History International Travel<30 days: No Contact w/Intl Traveler<30days: No Traveled to known affect area: No History of Present Illness HPI 56-year-old female with a history of diabetes mellitus type 2, hypertension, RANDA in his CVA presents emerged from for evaluation of cough, congestion, nausea , vomiting diarrhea for approximately 1 week. Patient states that she began having nausea with associated vomiting that was persistent for 3 days but this is not resolved. Says that she has had 3 episodes of loose stools daily for approximately 1 week. She denies any blood or abnormal colors to her stools. Says she has had somewhat of a productive cough with brown and green mucus. Says she occasionally feels shortness of breath. She denies any recent hospitalizations or antibiotic use. Says that she was in contact with her sister who is from [place], who was sick 1 week ago. She denies any abdominal pain. Denies urinary discomfort. Says she has chronic low back pain and goes to pain management for this. PFSH Past Medical History Arthritis: Yes Asthma: No Blood Disorders: No Anxiety: Yes Depression: Yes Heart Rhythm Problems: Yes Cancer: No Cardiac Catheterization: No Cardiovascular Problems: Yes High Cholesterol: Yes Chemotherapy: No Chest Pain: Yes Congestive Heart Failure: No COPD: No Coronary Artery Disease: Yes Diabetes: Yes Patient Takes Glucophage: Yes Diminished Hearing: No Endocrine: Yes Genitourinary: No Headaches: No Hypertension: Yes Immune Disorder: Yes Musculoskeletal: Yes Neurologic: Yes Psychiatric: No Reproductive: No Respiratory: Yes Immunizations Current: Yes Migraines: Yes Myocardial Infarction: No Radiation Therapy: No Seizures: No Sleep Apnea: Yes (PATIENT STATES HAS CPAP AT HOME BUT BROKEN, RECENT EVAL FOR NEW ONE.) Thyroid Disease: No Tetanus Vaccination: < 5 Years Influenza Vaccination: Yes PNEUMOCCOCAL Vaccine (Year): 2 ?: Not Menopausal: Yes : 5 Para: 5 Tubal Ligation: Yes Past Surgical History Abdominal Surgery: Yes (APPENDECTOMY) Appendectomy: Yes Coronary Artery Bypass Graft: No Gynecologic Surgery: Yes (PARTIAL HYSTER,1991, 2 TUBAL PREGNANCIES, THEN TOTAL HYSTERECTOMY) Hysterectomy: Yes Pacemaker: No Other Surgery: Yes Social History Alcohol Use: No Tobacco Use: No Substance Use: No Allergies-Medications (Allergen,Severity, Reaction): Coded Allergies: tramadol (Verified Adverse Reaction, Intermediate, vomiting, 09/04/17) N/V Reported Meds & Prescriptions Reported Meds & Active Scripts Active Benzonatate 100 Mg Cap 100 Mg PO TID PRN 5 Days Bactrim DS (Sulfamethoxazole-Trimethoprim) 800-160 Mg Tab 1 Tab PO BID Zofran (Ondansetron HCl) 4 Mg Tab 4 Mg PO Q8HR PRN 3 Days Amlodipine (Amlodipine Besylate) 5 Mg Tab 5 Mg PO DAILY Mobic (Meloxicam) 15 Mg Tab 15 Mg PO DAILY Hydrochlorothiazide 50 Mg Tab 25 Mg PO DAILY Metformin (Metformin HCl) 500 Mg Tab 500 Mg PO BIDPC With meals Simvastatin 20 Mg Tab 20 Mg PO DAILY Reported Lyrica (Pregabalin) 75 Mg Cap 75 Mg PO DAILY Flexeril (Cyclobenzaprine HCl) 5 Mg Tab 5 Mg PO TID Duloxetine DR (Duloxetine HCl) 30 Mg Capdr 30 Mg PO DAILY Hydrocodone-Acetaminophen 7.5-325 mg Tab 1 Tab PO BID PRN Review of Systems Except as stated in HPI: all other systems reviewed are Neg Physical Exam Narrative GENERAL: Well-developed, well-nourished in mild distress, congested sounding SKIN: Focused skin assessment warm/dry. HEAD: Atraumatic. Normocephalic. EYES: Pupils equal and round. No scleral icterus. No injection or drainage. ENT: No nasal bleeding or discharge. Mucous membranes pink and moist. NECK: Trachea midline. No JVD. CARDIOVASCULAR: Regular rate and rhythm. No murmur appreciated. RESPIRATORY: No accessory muscle use. Clear to auscultation. Breath sounds equal bilaterally. Slight wheeze GASTROINTESTINAL: Abdomen soft, nondistended. Normoactive bowel sounds. Mild tenderness to palpation left lower quadrant. MUSCULOSKELETAL: No obvious deformities. No clubbing. No cyanosis. No edema. Homans sign negative NEUROLOGICAL: Awake and alert. No obvious cranial nerve deficits. Motor grossly within normal limits. Normal speech. PSYCHIATRIC: Appropriate mood and affect; insight and judgment normal. Data Data Last Documented VS Vital Signs Date Time Temp Pulse Resp B/P (MAP) Pulse Ox O2 Delivery O2 Flow Rate FiO2 09/04/17 22:05 09/04/17 19:33 82 20 98 Room Air 09/04/17 17:19 99.2 Orders Orders Complete Blood Count With Diff (09/04/17 19:25) Comprehensive Metabolic Panel (09/04/17 19:25) Lipase (09/04/17 19:25) Prothrombin Time / Inr (Pt) (09/04/17 19:25) Act Partial Throm Time (Ptt) (09/04/17 19:25) Urinalysis - C+S If Indicated (09/04/17 19:25) Iv Access Insert/Monitor (09/04/17 19:25) Ecg Monitoring (09/04/17 19:25) Oximetry (09/04/17 19:25) Sodium Chlor 0.9% 1000 Ml Inj (Ns 1000 M (09/04/17 19:25) Chest, Pa & Lat (09/04/17 19:25) Oxygen Administration (09/04/17 19:25) Sodium Chloride 0.9% Flush (Ns Flush) (09/04/17 19:30) Potassium Chloride (Kcl) (09/04/17 20:45) Ed Discharge Order (09/04/17 21:32) Labs Laboratory Tests Test 09/04/17 19:59 White Blood Count 8.3 TH/MM3 Red Blood Count 5.30 MIL/MM3 Hemoglobin 12.6 GM/DL Hematocrit 38.4 % Mean Corpuscular Volume 72.4 FL Mean Corpuscular Hemoglobin 23.7 PG Mean Corpuscular Hemoglobin Concent 32.7 % Red Cell Distribution Width 14.2 % Platelet Count 284 TH/MM3 Mean Platelet Volume 7.5 FL Neutrophils (%) (Auto) 54.5 % Lymphocytes (%) (Auto) 36.7 % Monocytes (%) (Auto) 6.0 % Eosinophils (%) (Auto) 1.9 % Basophils (%) (Auto) 0.9 % Neutrophils # (Auto) 4.5 TH/MM3 Lymphocytes # (Auto) 3.1 TH/MM3 Monocytes # (Auto) 0.5 TH/MM3 Eosinophils # (Auto) 0.2 TH/MM3 Basophils # (Auto) 0.1 TH/MM3 CBC Comment DIFF FINAL Differential Comment Prothrombin Time 10.3 SEC Prothromb Time International Ratio 1.0 RATIO Activated Partial Thromboplast Time 25.2 SEC Urine Color YELLOW Urine Turbidity HAZY Urine pH 6.0 Urine Specific [place] 1.009 Urine Protein NEG mg/dL Urine Glucose (UA) NEG mg/dL Urine Ketones NEG mg/dL Urine Occult Blood NEG Urine Nitrite NEG Urine Bilirubin NEG Urine Urobilinogen LESS THAN 2.0 MG/DL Urine Leukocyte Esterase LARGE Urine RBC 4 /hpf Urine WBC 7 /hpf Urine Squamous Epithelial Cells 13 /hpf Urine Bacteria RARE /hpf Urine Mucus FEW /lpf Microscopic Urinalysis Comment CULT NOT INDICATED Blood Urea Nitrogen 8 MG/DL Creatinine 0.82 MG/DL Random Glucose 96 MG/DL Total Protein 8.2 GM/DL Albumin 3.9 GM/DL Calcium Level 9.7 MG/DL Alkaline Phosphatase 92 U/L Aspartate Amino Transf (AST/SGOT) 18 U/L Alanine Aminotransferase (ALT/SGPT) 27 U/L Total Bilirubin 0.6 MG/DL Sodium Level 141 MEQ/L Potassium Level 3.1 MEQ/L Chloride Level 104 MEQ/L Carbon Dioxide Level 28.1 MEQ/L Anion Gap 9 MEQ/L Estimat Glomerular Filtration Rate 88 ML/MIN Lipase 90 U/L MDM Medical Decision Making Medical Screen Exam Complete: Yes Emergency Medical Condition: Yes Differential Diagnosis Upper respiratory infection, gastroenteritis, influenza, diverticulitis, allergic rhinitis, Narrative Course 56-year-old female presents emergency department for evaluation of upper respiratory type symptoms and nausea, vomiting and diarrhea that has been persistent for approximately a week. Her nausea resolved spontaneously 4 days ago. Says she has had one episode of diarrhea today. Says that she has had a productive cough with green and brown sputum. Says she used multiple over-the- counter medications without relief. Vital signs are stable. Labs are significant for mild hypokalemia. Administered potassium 40 mEq. Urinalysis suggestive of urinary tract infection. Normal saline IV fluid administered. Chest x-ray without acute process. Patient be discharged with Bactrim for the UTI. Tessalon Perles for the cough. Zofran for potential nausea. Advised that she does not have any food restrictions. Advised that she should eat as tolerated. Continue fluids to reduce possibility of becoming dehydrated. Advised her to follow-up with a primary care physician. Return for worsening or persistent symptoms. Diagnosis Primary Impression: Hypokalemia Additional Impressions: UTI (urinary tract infection) Qualified Codes: N30.00 - Acute cystitis without hematuria Cough Referrals: Ear / Nose / Throat Specialist Primary Care Physician Additional Instructions: You may use a drop of honey and lemon in a cup of warm water to soothe your cough. (If you are greater than 1 year old ) Ensure good hydration and a nutritious diet. Note that viral infection symptoms may last for several weeks if you have a viral illness. Follow up with your primary physician within 2-3 days. Return to the ED for worsening or persistent symptoms. Consider follow up with an Ear nose or throat specialist for your cough if it persists. Take all medications as prescribed. Consider using OTC Imodium for your diarrhea but only use as directed and only for a couple of days. Scripts Benzonatate (Benzonatate) 100 Mg Cap 100 MG PO TID Y for COUGH for 5 Days, CAP 0 Refills Prov: Susi Mckenna MD 09/04/17 Sulfamethoxazole-Trimethoprim (Bactrim DS) 800-160 Mg Tab 1 TAB PO BID for Infection, #14 TAB 0 Refills Prov: Susi Mckenna MD 09/04/17 Ondansetron (Zofran) 4 Mg Tab 4 MG PO Q8HR Y for NAUSEA OR VOMITING for 3 Days, TAB 0 Refills Prov: Susi Mckenna MD 09/04/17 Disposition: 01 DISCHARGE HOME Condition: Stable Rolanda Means Sep 04, 2017 19:32
[2017-09-04 19:33] VITALS: BP 145/84; PULSE 82; RESP 20; O2SAT 98
--- NOTE | 2017-09-04 20:08 | RADRPT ---
EXAM DATE/TIME: 09/04/2017 19:47 [facility] COMPARISON: No previous studies available for comparison. INDICATIONS : Short of breath. MEDICAL HISTORY : None. SURGICAL HISTORY : None. ENCOUNTER: Initial ACUITY: 1 day PAIN SCORE: 0/10 LOCATION: Bilateral chest FINDINGS: PA and lateral views of the chest demonstrate the lungs to be symmetrically aerated without evidence of mass, infiltrate or effusion. The cardiomediastinal contours are unremarkable. Osseous structure s are intact. CONCLUSION: 1. No acute cardiopulmonary disease. Forest Ramirez MD on September 04, 2017 at 20:05 Board Certified Radiologist. This report was verified electronically.
[2017-09-04 20:16] LABS: AUTOMATED NEUTROPHIL # 4.5 TH/MM3 (1.8-7.7); BASOPHIL # 0.1 TH/MM3 (0-0.2); BASOPHIL % 0.9 % (0.0-2.0); EOSINOPHIL # 0.2 TH/MM3 (0-0.4); EOSINOPHIL % 1.9 % (0.0-4.0); HEMATOCRIT 38.4 % (35.0-46.0); HEMOGLOBIN 12.6 GM/DL (11.6-15.3); LYMPH % 36.7 % (9.0-44.0); LYMPHOCYTE # 3.1 TH/MM3 (1.0-4.8); MEAN CELL VOLUME 72.4 FL (80.0-100.0); MEAN CORPUSCULAR HEMOGLOBIN 23.7 PG (27.0-34.0); MEAN CORPUSCULAR HGB CONC 32.7 % (32.0-36.0); MEAN PLATELET VOLUME 7.5 FL (7.0-11.0); MONOCYTE # 0.5 TH/MM3 (0-0.9); NEUT % 54.5 % (16.0-70.0); PLATELET COUNT 284 TH/MM3 (150-450); RED CELL DISTRIBUTION WIDTH 14.2 % (11.6-17.2); WHITE BLOOD COUNT 8.3 TH/MM3 (4.0-11.0)
[2017-09-04 20:34] LABS: PROTHROMBIN TIME - PATIENT 10.3 SEC (9.8-11.6)
[2017-09-04 20:35] LABS: BACTERIA, URINE RARE /hpf; BILIRUBIN, URINE NEG (NEG); BLOOD, URINE NEG (NEG); GLUCOSE,URINE NEG (NEG); KETONE, URINE NEG (NEG); MUCUS URINE FEW /lpf (OCC); NITRITE,URINE NEG (NEG); SQUAMOUS EPITHELIAL CELL URINE 13 /hpf (0-5); URINE COLOR YELLOW (YELLW/STRAW); URINE LEUKOCYTE ESTERASE LARGE (NEG)
[2017-09-04 20:38] LABS: ALBUMIN 3.9 GM/DL (3.4-5.0); AST (GOT) 18 U/L (15-37); BICARBONATE 28.1 MEQ/L (21.0-32.0); BLOOD UREA NITROGEN 8 MG/DL (7-18); CALCIUM 9.7 MG/DL (8.5-10.1); CHLORIDE 104 MEQ/L (98-107); CREATININE 0.82 MG/DL (0.50-1.00); GLOMERULAR FILTRATION RATE 88 ML/MIN (>89); GLUCOSE,RANDOM 96 MG/DL (74-106); SODIUM (NA) 141 MEQ/L (136-145)
[2017-09-04 20:39] LABS: ALT (GPT) 27 U/L (10-53)
[2017-09-04 20:41] LABS: ALKALINE PHOSPHATASE 92 U/L (45-117); TOTAL BILIRUBIN ADULT 0.6 MG/DL (0.2-1.0); TOTAL PROTEIN 8.2 GM/DL (6.4-8.2)
[2017-09-04] MEDS ORDERED: POTASSIUM CHLORIDE 10 MEQ CONTROLLED RELEASE TAB PO ONE (20:45)
[2017-09-04] MEDS ORDERED: ZOFR4TAB PO (21:05)
[2017-09-04] MEDS ORDERED: BACT800T5 PO (21:05)
--- NOTE | 2017-09-04 21:27 | PD ---
Physical Exam Narrative General: The patient is a well-developed well-nourished female in no acute distress. Patient has a hoarse quality to her voice. Head and Neck exam: Head is normocephalic atraumatic. Eyes: EOMI, pupils are equal round and reactive to light. Nose: Midline septum with pink mucous membranes Mouth: Dentition unremarkable. Moist mucus membranes. Posterior oropharynx is not erythematous. No tonsillar hypertrophy. Uvula midline. Airway patent. Neck: No palpable lymphadenopathy. No nuchal rigidity. No thyromegaly. Cardiovascular: Regular rate and rhythm without murmurs, gallops, or rubs. Lungs: Clear to auscultation bilaterally. No wheezes, rhonchi, or rales. Abdomen: Soft, without tenderness to palpation in all 4 quadrants of the abdomen. No guarding, rebound, or rigidity. Normal bowel sounds are audible. No tenderness on palpation of McBurney's point. Negative Keating sign. Extremities: No clubbing, cyanosis, or edema. 2+ pulses in all 4 extremities. No calf tenderness on palpation. Back: No spinous process tenderness to palpation. No costovertebral angle tenderness to palpation. Neurologic Exam: Grossly nonfocal Skin Exam: No rash noted. Intact skin that is warm and dry. Data Data Last Documented VS Vital Signs Date Time Temp Pulse Resp B/P (MAP) Pulse Ox O2 Delivery O2 Flow Rate FiO2 09/04/17 22:05 09/04/17 19:33 82 20 98 Room Air 09/04/17 17:19 99.2 Orders Orders Complete Blood Count With Diff (09/04/17 19:25) Comprehensive Metabolic Panel (09/04/17 19:25) Lipase (09/04/17 19:25) Prothrombin Time / Inr (Pt) (09/04/17 19:25) Act Partial Throm Time (Ptt) (09/04/17 19:25) Urinalysis - C+S If Indicated (09/04/17 19:25) Iv Access Insert/Monitor (09/04/17 19:25) Ecg Monitoring (09/04/17 19:25) Oximetry (09/04/17 19:25) Sodium Chlor 0.9% 1000 Ml Inj (Ns 1000 M (09/04/17 19:25) Chest, Pa & Lat (09/04/17 19:25) Oxygen Administration (09/04/17 19:25) Sodium Chloride 0.9% Flush (Ns Flush) (09/04/17 19:30) Potassium Chloride (Kcl) (09/04/17 20:45) Ed Discharge Order (09/04/17 21:32) Labs Laboratory Tests Test 09/04/17 19:59 White Blood Count 8.3 TH/MM3 Red Blood Count 5.30 MIL/MM3 Hemoglobin 12.6 GM/DL Hematocrit 38.4 % Mean Corpuscular Volume 72.4 FL Mean Corpuscular Hemoglobin 23.7 PG Mean Corpuscular Hemoglobin Concent 32.7 % Red Cell Distribution Width 14.2 % Platelet Count 284 TH/MM3 Mean Platelet Volume 7.5 FL Neutrophils (%) (Auto) 54.5 % Lymphocytes (%) (Auto) 36.7 % Monocytes (%) (Auto) 6.0 % Eosinophils (%) (Auto) 1.9 % Basophils (%) (Auto) 0.9 % Neutrophils # (Auto) 4.5 TH/MM3 Lymphocytes # (Auto) 3.1 TH/MM3 Monocytes # (Auto) 0.5 TH/MM3 Eosinophils # (Auto) 0.2 TH/MM3 Basophils # (Auto) 0.1 TH/MM3 CBC Comment DIFF FINAL Differential Comment Prothrombin Time 10.3 SEC Prothromb Time International Ratio 1.0 RATIO Activated Partial Thromboplast Time 25.2 SEC Urine Color YELLOW Urine Turbidity HAZY Urine pH 6.0 Urine Specific [place] 1.009 Urine Protein NEG mg/dL Urine Glucose (UA) NEG mg/dL Urine Ketones NEG mg/dL Urine Occult Blood NEG Urine Nitrite NEG Urine Bilirubin NEG Urine Urobilinogen LESS THAN 2.0 MG/DL Urine Leukocyte Esterase LARGE Urine RBC 4 /hpf Urine WBC 7 /hpf Urine Squamous Epithelial Cells 13 /hpf Urine Bacteria RARE /hpf Urine Mucus FEW /lpf Microscopic Urinalysis Comment CULT NOT INDICATED Blood Urea Nitrogen 8 MG/DL Creatinine 0.82 MG/DL Random Glucose 96 MG/DL Total Protein 8.2 GM/DL Albumin 3.9 GM/DL Calcium Level 9.7 MG/DL Alkaline Phosphatase 92 U/L Aspartate Amino Transf (AST/SGOT) 18 U/L Alanine Aminotransferase (ALT/SGPT) 27 U/L Total Bilirubin 0.6 MG/DL Sodium Level 141 MEQ/L Potassium Level 3.1 MEQ/L Chloride Level 104 MEQ/L Carbon Dioxide Level 28.1 MEQ/L Anion Gap 9 MEQ/L Estimat Glomerular Filtration Rate 88 ML/MIN Lipase 90 U/L [facility] Medical Record Reviewed: Yes Supervised Visit with SAHIL: Yes Interpretation(s) Last Impressions Chest X-Ray 09/04/[id number] Signed Impressions: Service Date/Time: Monday, September 04, 2017 19:47 - CONCLUSION: 1. No acute cardiopulmonary disease. Forest Ramirez MD Narrative Course I, Dr. Mckenna, have reviewed the advance practice practitioner's documentation and am in agreement, met with the patient face to face, made the diagnosis, and the medical decision making was done by me. The patient was initially evaluated by Rolanda, the physician cardiology physician assistant. Please see their complete history and physical. *My assessment and Findings: The patient presents with a history of cough, congestion that began 1 week ago. During the course of the patient's emergency department visit, the patient's history, examination, and differential diagnosis were reviewed with the patient. The patient was placed on a desk monitor with oximetry and frequent blood pressure monitoring. The patient had IV access obtained and blood work sent for analysis. The patient was initially provided Normal saline 1 L IV fluid bolus, potassium supplementation for hypokalemia. The patient's laboratory studies were reviewed and remarkable for: 09/04/17 19:59 Total Protein 8.2, Albumin 3.9, Calcium Level 9.7, Alkaline Phosphatase 92, Aspartate Amino Transf (AST/SGOT) 18, Alanine Aminotransferase (ALT/SGPT) 27, Total Bilirubin 0.6, lipase is within normal limits. Urinalysis shows evidence of a urinary tract infection. Radiology studies were reviewed and remarkable for a chest x-ray that shows no acute cardiopulmonary disease. The patient's symptoms are most consistent with an upper respiratory infection and a urinalysis suspicious for urinary tract infection and the patient has also been experiencing diarrhea which has likely led to the urinary tract infection. The patient will be discharged home on antibiotic. The patient is resting comfortably and feels better, is alert and in no distress. The patient's results and examination findings were discussed with the patient. The repeat examination is unremarkable and benign. The history, exam, diagnostic testing, and current condition do not suggest any significant pathology to warrant further testing, continued ED treatment, admission, or surgical evaluation at this point. The vital signs have been stable. The patient does not have uncontrollable pain, intractable vomiting, or other significant symptoms. The patient's condition is stable and appropriate for discharge. The patient will pursue further outpatient evaluation with a primary care physician or other designated or consulting physician as indicated in the discharge instructions. The patient expressed understanding and was agreeable with this plan. Diagnosis Primary Impression: Hypokalemia Additional Impression: UTI (urinary tract infection) Qualified Codes: N30.00 - Acute cystitis without hematuria Scripts Benzonatate (Benzonatate) 100 Mg Cap 100 MG PO TID Y for COUGH for 5 Days, CAP 0 Refills Prov: Susi Mckenna MD 09/04/17 Sulfamethoxazole-Trimethoprim (Bactrim DS) 800-160 Mg Tab 1 TAB PO BID for Infection, #14 TAB 0 Refills Prov: Susi Mckenna MD 09/04/17 Ondansetron (Zofran) 4 Mg Tab 4 MG PO Q8HR Y for NAUSEA OR VOMITING for 3 Days, TAB 0 Refills Prov: Susi Mckenna MD 09/04/17 Disposition: 01 DISCHARGE HOME Condition: Stable Susi Mckenna MD Sep 04, 2017 21:27
[2017-09-04] MEDS ORDERED: BENZ1CAP54 PO (21:30)
== END 2017-09-04 22:08 | disposition home or self-care (01) ==
LOC: NEPC 17:11
DX: N39.0 Urinary tract infection, site not specified (principal); E87.6 Hypokalemia; J06.9 Acute upper respiratory infection, unspecified; R11.2 Nausea with vomiting, unspecified; R19.7 Diarrhea, unspecified; E11.9 Type 2 diabetes mellitus without complications; I10 Essential (primary) hypertension; E78.00 Pure hypercholesterolemia, unspecified; I25.10 Atherosclerotic heart disease of native coronary artery without angina pectoris
CPT/HCPCS: 71046; 80053; 81001; 83690; 85025; 85610; 85730; 96360; 99284; J7030